=== PATIENT | female | born 1945 | race Hispanic/Latino ===

== ENCOUNTER 2016-10-09 11:40 | Day surgery (SDC) | payer BC, MEDICARE ==
[2016-08-29 11:08] VITALS: BMI 24.2
[2016-10-09] MEDS ORDERED: Lactated Ringer's 1,000 ML IV SCH (12:22)
[2016-10-09] MEDS ORDERED: Propofol 10 mg/ml Inj (20 ML) ONE ×2 (14:18→14:32)
[2016-10-09] MEDS ORDERED: Lidocaine 1% Inj (20ml) ONE ×2 (14:18→14:34)
[2016-10-09 16:08] VITALS: BP 140/85; PULSE 56; RESP 16; TEMP 97.6; O2SAT 100
== END 2016-10-09 16:47 | disposition home or self-care (01) ==
LOC: ENDO 11:40
PROVIDERS: ATTEND Internal Medicine
DX: K29.50 Unspecified chronic gastritis without bleeding (principal); B96.81 Helicobacter pylori [H. pylori] as the cause of diseases classified elsewhere; R63.4 Abnormal weight loss; K21.9 Gastro-esophageal reflux disease without esophagitis; K44.9 Diaphragmatic hernia without obstruction or gangrene; K59.00 Constipation, unspecified; D12.5 Benign neoplasm of sigmoid colon; K64.8 Other hemorrhoids; I10 Essential (primary) hypertension; E78.5 Hyperlipidemia, unspecified; E03.9 Hypothyroidism, unspecified
CPT/HCPCS: 43239; 45380; 88305; 88342; J2704; J7040; J7120

== ENCOUNTER 2016-11-28 10:49 | Emergency (ER) | payer MEDICARE ==
[2016-11-28 11:07] VITALS: BMI 20.3
[2016-11-28 11:34] LABS: BASO # 0.02 K/mm3 (0.0-2.0); BASO % 0.3 % (0.0-3.0); EOS % 0.4 % (1.5-5.0); GRAN # 4.76 (1.4-6.5); GRAN % 66.7 % (50.0-68.0); HEMOGLOBIN 14.8 gm/dL (12.0-16.0); LYMPH # 1.7 (1.2-3.4); LYMPH % 24.3 % (22.0-35.0); MEAN CELL VOLUME 97.9 fL (80.0-105.0); MEAN CORPUSCULAR HEMOGLOBIN 33.8 pg (25.0-35.0); MEAN CORPUSCULAR HGB CONC 34.5 g/dl (31.0-37.0); MEAN PLATELET VOLUME 9.3 fl (7.0-11.0); MONO # 0.6 (0.1-0.6); MONO % 8.3 % (1.0-6.0); PLATELET COUNT 317 10^3/uL (120.0-450.0); RBC 4.38 10^6/uL (3.5-6.1); RED CELL DISTRIBUTION WIDTH 12.7 % (11.5-14.5); URINE BILIRUBIN NEGATIVE (NEGATIVE); URINE BLOOD SMALL (NEGATIVE); URINE GLUCOSE (UA) NEGATIVE (NEGATIVE); URINE LEUKOCYTE ESTERASE NEGATIVE Leu/uL (NEGATIVE); URINE NITRATE NEGATIVE (NEGATIVE); URINE PROTEIN NEGATIVE mg/dL (<30 mg/dL); WHITE BLOOD COUNT 7.1 10^3/ul (4.5-11.0)
[2016-11-28 11:42] LABS: SALICYLATE < 1 mg/dL (2.0-20.0); URINE APPEARANCE CLEAR (CLEAR); URINE COLOR YELLOW (YELLOW)
[2016-11-28 11:43] LABS: ALB/GLOB RATIO 1.7 (1.1-1.8); ALBUMIN 4.5 g/dL (3.0-4.8); ALT/SGPT 45 U/L (7-56); AST/SGOT 30 U/L (15-39); BLOOD UREA NITROGEN 16 mg/dL (7-21); CALCIUM 9.8 mg/dL (8.4-10.5); GFR AFRICAN-AMERICAN > 60; GFR NON-AFRICAN AMERICAN > 60
[2016-11-28 11:45] LABS: ACETAMINOPHEN < 10.0 ug/ml (10.0-20.0)
[2016-11-28 11:51] LABS: URINE BACTERIA SMALL (NEG); URINE CALCIUM OXALATE CRYSTALS TRACE /hpf; URINE RBC 0 - 2 /hpf (0-2)
[2016-11-28 11:52] LABS: BARBITURATES, UR NEGATIVE (NEGATIVE); BENZODIAZEPINES, UR NEGATIVE (NEGATIVE); OPIATES, UR NEGATIVE (NEGATIVE); PHENCYCLIDINE, UR NEGATIVE (NEGATIVE)
--- NOTE | 2016-11-28 12:00 | RAD ---
HISTORY: admission COMPARISON: 12/16/2013 FINDINGS: LUNGS: No active pulmonary disease. PLEURA: No significant pleural effusion identified, no pneumothorax apparent. CARDIOVASCULAR: Normal. OSSEOUS STRUCTURES: No significant abnormalities. VISUALIZED UPPER ABDOMEN: Normal. OTHER FINDINGS: None. IMPRESSION: No active disease.
--- NOTE | 2016-11-28 12:05 | ED PDOC ---
Arrival/HPI - General Historian: Patient, Family <Alix Eckert A - Last Filed: 11/28/16 13:24> <Mehul Pozo - Last Filed: 11/28/16 13:33> - General Chief Complaint: Psychiatric Evaluation Time Seen by Provider: 11/28/16 10:59 - History of Present Illness Narrative History of Present Illness (Text): 11/28/16 11:59 71yo female with PMHx of hypothyroid, hypercholestrol bib the daughter for psychiatric evaluation. Daughter notes history of depression. States patient have not been eating well for almost 2years now and don't want to do anything. States she is on antidepressant, given by her PMD. Denies hallucination, SI/HI, any somatic complaint. (Alix Eckert A) Past Medical History - Provider Review Nursing Documentation Reviewed: Yes - Infectious Disease Hx of Infectious Diseases: None - Cardiac Hx Pacemaker: No - Neurological Hx Paralysis: No - Endocrine/Metabolic Hx Hypothyroidism: Yes - Hematological/Oncological Hx Blood Transfusions: No Hx Blood Transfusion Reaction: No - Musculoskeletal/Rheumatological Hx Musculoskeletal Disorders: No - Gastrointestinal Hx Gastroesophageal Reflux: Yes - Psychiatric Hx Anxiety: Yes Hx Depression: Yes Hx Substance Use: No - Surgical History Hx Section: Yes Hx Cholecystectomy: Yes - Anesthesia Hx Anesthesia Reactions: No Hx Malignant Hyperthermia: No - Suicidal Assessment Feels Threatened In Home Enviroment: No <Alix Eckert A - Last Filed: 11/28/16 13:24> Family/Social History - Physician Review Nursing Documentation Reviewed: Yes Family/Social History: Unknown Family HX Smoking Status: Never Smoked Hx Alcohol Use: No (SOCIAL) Hx Substance Use: No <Alix Eckert A - Last Filed: 11/28/16 13:24> Allergies/Home Meds <Alix Eckert A - Last Filed: 11/28/16 13:24> <Mehul Pozo - Last Filed: 11/28/16 13:33> Allergies/Adverse Reactions: Allergies alprazolam Allergy (Verified 10/06/16 10:41) ILL FEELING prednisone Allergy (Verified 10/06/16 10:41) CHEST TIGHTNESS Home Medications: Home Meds Medication Instructions Recorded Confirmed Aspirin [Lo-Dose Aspirin EC] 81 mg PO DAILY 10/06/16 11/28/16 Escitalopram [Lexapro] 10 mg PO DAILY 10/06/16 11/28/16 Ezetimibe [Zetia] 10 mg PO DAILY 10/06/16 11/28/16 Levothyroxine [Synthroid] 100 mcg PO DAILY 10/06/16 11/28/16 Polyethylene Glycol 3350 [Miralax] 17 gm PO DAILY 10/09/16 11/28/16 Pantoprazole [Protonix EC Tab] 40 mg PO BID 11/28/16 11/28/16 Vortioxetine Hydrobromide 10 mg PO DAILY 11/28/16 11/28/16 [Trintellix] Review of Systems - Physician Review All systems were reviewed & negative as marked: Yes - Review of Systems Constitutional: Normal Eyes: Normal ENT: Normal Respiratory: Normal Cardiovascular: Normal Gastrointestinal: Normal Genitourinary Female: Normal Musculoskeletal: Normal Skin: Normal Neurological: Normal Endocrine: Normal Hemo/Lymphatic: Normal Psychiatric: Anxiety, Depression <Diru,Happiness A - Last Filed: 11/28/16 13:24> Physical Exam Vital Signs Reviewed: Yes Temperature: Afebrile Blood Pressure: Normal Pulse: Regular Respiratory Rate: Normal Appearance: Positive for: Well-Appearing, Non-Toxic, Comfortable Pain Distress: None Mental Status: Positive for: Alert and Oriented X 3 - Systems Exam Head: Present: Atraumatic, Normocephalic Pupils: Present: PERRL Extroacular Muscles: Present: EOMI Conjunctiva: Present: Normal Mouth: Present: Moist Mucous Membranes Neck: Present: Normal Range of Motion Respiratory/Chest: Present: Clear to Auscultation, Good Air Exchange. No: Respiratory Distress, Accessory Muscle Use Cardiovascular: Present: Regular Rate and Rhythm, Normal S1, S2. No: Murmurs Abdomen: Present: Normal Bowel Sounds. No: Tenderness, Distention, Peritoneal Signs Back: Present: Normal Inspection Upper Extremity: Present: Normal Inspection. No: Cyanosis, Edema Lower Extremity: Present: Normal Inspection. No: Edema Neurological: Present: GCS=15, CN II-XII Intact, Speech Normal Skin: Present: Warm, Dry, Normal Color. No: Rashes Psychiatric: Present: Alert, Oriented x 3, Normal Insight, Normal Concentration <Diru,Happiness A - Last Filed: 11/28/16 13:24> Medical Decision Making <Diru,Happiness A - Last Filed: 11/28/16 13:24> <Imm,Mehul T - Last Filed: 11/28/16 13:33> ED Course and Treatment: 11/28/16 13:29 PT was medially cleared for psychiatric evaluation. She was seen by ANTONIETA Lundberg who discussed the case with psychiatrics, and they offered patient admission but she declined. She referred pt to a psychiatrist. Patient denied SI/HI in ED. she is stable to be DC home. (Diru,Happiness A) - Lab Interpretations Lab Results: 11/28/16 11:15 11/28/16 11:15 Lab Results 11/28/16 11:15: Alcohol, Quantitative < 10 11/28/16 11:15: Salicylates < 1 L, Acetaminophen < 10.0 L 11/28/16 11:15: Urine Opiates Screen Negative, Urine Methadone Screen Negative, Ur Barbiturates Screen Negative, Ur Phencyclidine Scrn Negative, Ur Amphetamines Screen Negative, U Benzodiazepines Scrn Negative, U Oth Cocaine Metabols Negative, U Cannabinoids Screen Negative 11/28/16 11:15: Sodium 141, Potassium 3.6, Chloride 102, Carbon Dioxide 28, Anion Gap 15, BUN 16, Creatinine 0.6, Est GFR ( Amer) > 60, Est GFR (Non- Af Amer) > 60, Random Glucose 102, Calcium 9.8, Total Bilirubin 0.6, AST 30, ALT 45, Alkaline Phosphatase 44, Total Protein 7.2, Albumin 4.5, Globulin 2.7, Albumin/Globulin Ratio 1.7 11/28/16 11:15: Urine Color Yellow, Urine Appearance Clear, Urine pH 6.0, Ur Specific [place] 1.025, Urine Protein Negative, Urine Glucose (UA) Negative, Urine Ketones Negative, Urine Blood Small H, Urine Nitrate Negative, Urine Bilirubin Negative, Urine Urobilinogen 1.0 H, Ur Leukocyte Esterase Negative, Urine RBC 0 - 2, Urine WBC 1 - 3, Ur Epithelial Cells 1 - 3, Calcium Oxalate Crystal Trace, Urine Bacteria Small 11/28/16 11:15: WBC 7.1, RBC 4.38, Hgb 14.8, Hct 42.9, MCV 97.9, MCH 33.8, MCHC 34.5, RDW 12.7, Plt Count 317, MPV 9.3, Gran % 66.7, Lymph % (Auto) 24.3, [place] % (Auto) 8.3 H, Eos % (Auto) 0.4 L, Baso % (Auto) 0.3, Gran # 4.76, Lymph # 1.7 , Vil[place] # 0.6, Eos # 0.0, Baso # 0.02 - RAD Interpretation Radiology Orders: 11/28/16 11:14 CHEST PORTABLE [RAD] Stat - PA / WELFARE INTERVIEWER / Resident Statement / has reviewed & agrees with the documentation as recorded. / has examined the patient and agrees with the treatment plan. <Mehul Pozo - Last Filed: 11/28/16 13:33> Disposition/Present on Arrival - Present on Arrival Any Indicators Present on Arrival: No History of DVT/PE: No History of Uncontrolled Diabetes: No Urinary Catheter: No History of Decub. Ulcer: No History Surgical Site Infection Following: None - Disposition Have Diagnosis and Disposition been Completed?: Yes Disposition Time: 13:25 Patient Plan: Discharge <Alix Eckert - Last Filed: 11/28/16 13:24> <Mehul Pozo - Last Filed: 11/28/16 13:33> - Disposition Diagnosis: Depression Disposition: HOME/ ROUTINE Condition: STABLE Discharge Instructions (ExitCare): Depression (ED) Additional Instructions: Follow up with the psychiatrist Return to ED for any new symptoms Referrals: PCP,NO [Primary Care Provider] - Follow up with primary
[2016-11-28 14:58] VITALS: BP 132/70; PULSE 69; RESP 18; TEMP 98; O2SAT 98
--- NOTE | 2016-11-29 09:27 | CARD ---
APPROVED REPORT EKG Measurement Heart [id number] MD [id number] <Conclusion> Normal sinus rhythm Normal ECG
== END 2016-11-28 15:06 | disposition home or self-care (01) ==
LOC: ED 10:49
DX: F32.9 Major depressive disorder, single episode, unspecified (principal)
CPT/HCPCS: 71010; 80053; 81001; 85025; 93005; 99284; G0480